=== PATIENT | female | born 1985 | race Two or more races ===

== ENCOUNTER 2017-02-17 09:24 | Observation (INO) | payer SELFPAY ==
[2017-02-17] VITALS (9 sets, daily range): BP systolic 94–108; BP diastolic 55–66
[~2017-02-17] VITALS: Ht 165.1 cm; Wt 90.3 kg
[~2017-02-17 09:24] MED LIST: HYDR-971 PO; NAPR500T8 PO
[2017-02-17 09:57] LABS: BILIRUBIN,URINE NEGATIVE (NEG); GLUCOSE,URINE NEGATIVE (NEG); NITRITE,URINE NEGATIVE (NEG); PROTEIN,URINE 30 mg/dL (NEG-TRACE); UROBILINOGEN,URINE 0.2 mg/dL (0.2 mg/dL)
--- NOTE | 2017-02-17 09:59 | PHYS DOC ---
Past Medical History Past Medical History: No Pertinent History Past Surgical History: No Surgical History Alcohol Use: None Drug Use: None Adult General Chief Complaint Chief Complaint: VAGINAL BLEEDING HPI HPI 32-year-old female presenting to the emergency department today with right flank pain and vaginal bleeding. She is approximately 10 weeks by last menstrual period which was in the middle of November. She has sharp pain that radiates into the groin associated with polyuria without dysuria. It is moderate intermittent and without alleviating factors. Review of systems is negative for chest pain shortness of breath nausea vomiting. All other review of systems is negative unless otherwise noted in history of present illness. ED course: 32-year-old G7 female presenting to the emergency department today with right flank pain and vaginal bleeding noted to have a low-grade temperature on triage vital signs. The patient was given IV fluids. Ultrasound obtained. Blood work obtained. Vaginal exam performed in the presence of a female nurse showed mild blood without any evidence of cervicitis. No cervical motion tenderness. No evidence of adnexal masses. I discussed the case with Dr. Monson. Patient has signs suggestive of a urinary tract infection. Also, septic in the differential. Also appendicitis in the differential. Abdominal exam shows a nontender appendix with flank pain. Dr. Monson decided to take the patient for a D&C in the operating room for a D&C and admitted to the hospital with IV antibiotics. Review of Systems Review of Systems SEE ABOVE. Current Medications Current Medications Current Medications Medications (Trade) Dose Ordered Sig/Farideh Start Time Stop Time Status Last Admin Dose Admin Ceftriaxone Sodium 50 ml @ 100 mls/hr 1X ONCE 02/17/17 12:00 02/17/17 12:29 DC Dexamethasone Sodium Phosphate (Decadron) 20 mg STK-MED ONCE 02/17/17 12:22 02/17/17 12:23 DC Famotidine (Pepcid) 20 mg STK-MED ONCE 02/17/17 12:22 02/17/17 12:23 DC Fentanyl Citrate (Fentanyl 2ml Vial) 100 mcg STK-MED ONCE 02/17/17 12:22 02/17/17 12:23 DC Hydromorphone HCl (Dilaudid) 0.5 mg PRN Q10MIN PRN 02/18/17 07:00 02/19/17 06:59 Lidocaine HCl (Lidocaine Pf 2% Vial) 5 ml STK-MED ONCE 02/17/17 12:22 02/17/17 12:23 DC Midazolam HCl (Versed) 2 mg STK-MED ONCE 02/17/17 12:22 02/17/17 12:23 DC Morphine Sulfate 1 mg PRN Q10MIN PRN 02/18/17 07:00 02/19/17 06:59 Ondansetron HCl (Zofran) 4 mg STK-MED ONCE 02/17/17 12:22 02/17/17 12:23 DC Oxytocin (Pitocin) 10 unit STK-MED ONCE 02/17/17 12:36 02/17/17 12:37 DC Prochlorperazine Edisylate (Compazine) 5 mg PACU PRN PRN 02/18/17 07:00 02/19/17 06:59 Propofol 20 ml @ As Directed STK-MED ONCE 02/17/17 12:22 02/17/17 12:23 DC Ringer's Solution 1,000 ml @ 30 mls/hr Q24H 02/18/17 07:00 02/18/17 18:59 Sodium Chloride 1,000 ml @ 1,000 mls/hr 1X ONCE 02/17/17 10:15 02/17/17 11:14 DC 02/17/17 10:25 1,000 MLS/HR Vasopressin (Vasostrict) 20 unit STK-MED ONCE 02/17/17 12:36 02/17/17 12:37 DC Allergies Allergies Allergies Coded Allergies Type Severity Reaction Last Updated Verified No Known Drug Allergies 07/31/15 No Physical Exam Physical Exam SEE ABOVE Constitutional: Well developed, well nourished, no acute distress, non-toxic appearance. [] HENT: Normocephalic, atraumatic, bilateral external ears normal, oropharynx moist, no oral exudates, nose normal. [] Eyes: PERRLA, EOMI, conjunctiva normal, no discharge. [] Neck: Normal range of motion, no tenderness, supple, no stridor. [] Cardiovascular:Heart rate regular rhythm, no murmur [] Lungs & Thorax: Bilateral breath sounds clear to auscultation [] Abdomen: Abdomen is soft and nontender. Negative McBurney's point. Negative Devlin sign. No rebound tenderness or guarding present. Skin: Warm, dry, no erythema, no rash. [] Back: No midline tenderness, positive for right CVA tenderness. Negative for left CVA tenderness Extremities: No tenderness, no cyanosis, no clubbing, ROM intact, no edema. [] Neurologic: Alert and oriented X 3, normal motor function, normal sensory function, no focal deficits noted. [] Psychologic: Affect normal, judgement normal, mood normal. [] Current Patient Data Vital Signs Vital Signs Date Time Temp Pulse Resp B/P (MAP) Pulse Ox O2 Delivery O2 Flow Rate FiO2 02/17/17 10:24 18 02/17/17 09:40 100.1 100 129/74 (92) 100 Room Air 100.1 Lab Values Laboratory Tests Test 02/17/17 08:43 02/17/17 09:33 02/17/17 09:40 POC Urine HCG, Qualitative Hcg positive (Negative) Urine Collection Type Void Urine Color Yellow Urine Clarity Cloudy Urine pH 7.0 Urine Specific [place] 1.010 Urine Protein 30 mg/dL (NEG-TRACE) Urine Glucose (UA) Negative mg/dL (NEG) Urine Ketones (Stick) Negative mg/dL (NEG) Urine Blood Large (NEG) Urine Nitrite Negative (NEG) Urine Bilirubin Negative (NEG) Urine Urobilinogen Dipstick 0.2 mg/dL (0.2 mg/dL) Urine Leukocyte Esterase Large (NEG) Urine RBC Tntc /HPF (0-2) Urine WBC Tntc /HPF (0-4) Urine Squamous Epithelial Cells Few /LPF Urine Bacteria Many /HPF (0-FEW) White Blood Count 14.4 x10^3/uL (4.0-11.0) H Red Blood Count 4.18 x10^6/uL (3.50-5.40) Hemoglobin 11.5 g/dL (12.0-15.5) L Hematocrit 34.0 % (36.0-47.0) L Mean Corpuscular Volume 81 fL (79-100) Mean Corpuscular Hemoglobin 28 pg (25-35) Mean Corpuscular Hemoglobin Concent 34 g/dL (31-37) Red Cell Distribution Width 16.3 % (11.5-14.5) H Platelet Count 257 x10^3/uL (140-400) Neutrophils (%) (Auto) 85 % (31-73) H Lymphocytes (%) (Auto) 8 % (24-48) L Monocytes (%) (Auto) 6 % (0-9) Eosinophils (%) (Auto) 1 % (0-3) Basophils (%) (Auto) 0 % (0-3) Neutrophils # (Auto) 12.3 x10^3uL (1.8-7.7) H Lymphocytes # (Auto) 1.1 x10^3/uL (1.0-4.8) Monocytes # (Auto) 0.8 x10^3/uL (0.0-1.1) Eosinophils # (Auto) 0.2 x10^3/uL (0.0-0.7) Basophils # (Auto) 0.0 x10^3/uL (0.0-0.2) Segmented Neutrophils % 78 % (35-66) H Band Neutrophils % 12 % (0-9) H Lymphocytes % 5 % (24-48) L Atypical Lymphocytes % (Manual) 1 % (0-0) H Monocytes % 3 % (0-10) Eosinophils % 1 % (0-5) Platelet Estimate Adequate (ADEQUATE) Maternal Serum HCG Beta Subunit 8183 mIU/mL (0-5) H Sodium Level 140 mmol/L (136-145) Potassium Level 3.4 mmol/L (3.5-5.1) L Chloride Level 104 mmol/L (98-107) Carbon Dioxide Level 28 mmol/L (21-32) Anion Gap 8 (6-14) Blood Urea Nitrogen 8 mg/dL (7-20) Creatinine 0.5 mg/dL (0.6-1.0) L Estimated GFR (Cockcroft-Gault) 142.1 BUN/Creatinine Ratio 16 (6-20) Glucose Level 90 mg/dL (70-99) Calcium Level 8.1 mg/dL (8.5-10.1) L Total Bilirubin 0.4 mg/dL (0.2-1.0) Aspartate Amino Transferase (AST) 9 U/L (15-37) L Alanine Aminotransferase (ALT) 15 U/L (14-59) Alkaline Phosphatase 79 U/L (46-116) Total Protein 7.8 g/dL (6.4-8.2) Albumin 3.4 g/dL (3.4-5.0) Albumin/Globulin Ratio 0.8 (1.0-1.7) L Lipase 94 U/L (73-393) Laboratory Tests 02/17/17 09:40 Laboratory Tests 02/17/17 09:40 EKG EKG [] Radiology/Procedures Radiology/Procedures [] Course & Med Decision Making Course & Med Decision Making Pertinent Labs and Imaging studies reviewed. (See chart for details) [] Dragon Disclaimer Dragon Disclaimer This electronic medical record was generated, in whole or in part, using a voice recognition dictation system. Departure Departure Impression: Primary Impression: Right flank pain Additional Impressions: Vaginal bleeding in Sepsis due to incomplete miscarriage Disposition: ADMITTED INPATIENT Admitting Physician: Other (stephane) Condition: IMPROVED Referrals: TRACY KUMAR (PCP) ALANNA QUINTERO Jr, MD Patient Instructions: Flank Pain, Vaginal Bleeding During , First Trimester Problem Qualifiers SHIV MAGANA MD Feb 17, 2017 09:59
[2017-02-17] MEDS ORDERED: fentaNYL PF VIAL 100 MCG/2 ML VIAL IV PRN ×2 (10:00→14:00)
[2017-02-17 10:04] LABS: BASO % 0 % (0-3); EOS % 1 % (0-3); HEMOGLOBIN 11.5 g/dL (12.0-15.5); LYMPH # 1.1 x10^3/uL (1.0-4.8); LYMPH % 8 % (24-48); MEAN CORPUSCULAR HEMOGLOBIN 28 pg (25-35); MEAN CORPUSCULAR HGB CONC 34 g/dL (31-37); MEAN CORPUSCULAR VOLUME 81 fL (79-100); MONO % 6 % (0-9); NEUT % 85 % (31-73); PLATELET COUNT 257 x10^3/uL (140-400); RED BLOOD COUNT 4.18 x10^6/uL (3.50-5.40); RED CELL DISTRIBUTION WIDTH 16.3 % (11.5-14.5); WHITE BLOOD COUNT 14.4 x10^3/uL (4.0-11.0)
[2017-02-17 10:06] LABS: BACTERIA,URINE MANY /HPF (0-FEW); RBC,URINE TNTC /HPF (0-2); SQUAMOUS EPITHELIAL CELL,UR FEW /LPF; WBC,URINE TNTC /HPF (0-4)
[2017-02-17 10:13] LABS: CALCIUM 8.1 mg/dL (8.5-10.1); CREATININE 0.5 mg/dL (0.6-1.0); GFR 142.1; POTASSIUM 3.4 mmol/L (3.5-5.1)
[2017-02-17] MEDS ORDERED: ONDANSETRON PF 4 MG/2 ML VIAL. IV ONE (10:15)
[2017-02-17] MEDS ORDERED: IV NORMAL SALINE 1000ML BAG 1,000 ML IV ONE (10:15)
[2017-02-17 10:19] LABS: ALBUMIN 3.4 g/dL (3.4-5.0); ALBUMIN/GLOBULIN RATIO 0.8 (1.0-1.7); TOTAL BILIRUBIN 0.4 mg/dL (0.2-1.0); TOTAL PROTEIN 7.8 g/dL (6.4-8.2)
--- NOTE | 2017-02-17 10:43 | RAD ---
Obstetrical ultrasound, 02/17/2017: History: , vaginal bleeding Transabdominal and transvaginal scans were obtained. The uterus is enlarged and retroflexed. There is considerable thickening of the central uterine echo complex. There is a small fluid collection within the central uterine echo complex compatible with a gestational sac. Its margins are irregular and less echogenic than normal. The sac measures approximately 2.5 x 1 cm. There is faint echogenic debris within this fluid collection. A questionable tiny pole is seen demonstrating a crown-rump length of 2 mm. No heart motion is evident. The ovaries are of normal size. No adnexal mass is seen. No free fluid is evident in the pelvis. IMPRESSION: 1. Abnormal appearing early gestational sac within the central uterine cavity suggesting a nonviable . Correlation with hCG titers and possibly sonographic follow-up is suggested for confirmation. 2. No adnexal abnormality is detected.
[2017-02-17 10:53] LABS: % EOS 1 % (0-5)
[2017-02-17 10:54] LABS: PLT ESTIMATE ADEQUATE (ADEQUATE)
[2017-02-17] MEDS ORDERED: PROPOFOL 20 ML IV ONE (12:22)
[2017-02-17] MEDS ORDERED: fentaNYL PF VIAL 100 MCG/2 ML VIAL ONE (12:22)
[2017-02-17] MEDS ORDERED: ONDANSETRON PF 4 MG/2 ML VIAL. ONE (12:22)
[2017-02-17] MEDS ORDERED: MIDAZOLAM HCL/PF 2 MG/2 ML VIAL. ONE (12:22)
[2017-02-17] MEDS ORDERED: FAMOTIDINE 20 MG/2 ML VIAL ONE (12:22)
[2017-02-17] MEDS ORDERED: LIDOCAINE 2% PF Vial for OR 5 ML VIAL. ONE (12:22)
[2017-02-17] MEDS ORDERED: DEXAMETHASONE SOD PHOS 20 MG/5 ML VIAL. ONE (12:22)
[2017-02-17] MEDS ORDERED: VASOPRESSIN 20 UNIT/ML VIAL. ONE (12:36)
[2017-02-17] MEDS ORDERED: OXYTOCIN 10 UNIT/ML VIAL. ONE (12:36)
[2017-02-17] MEDS ORDERED: SEVOFLURANE 16 TO 30 MINUTES. IH ONE (13:29)
--- NOTE | 2017-02-17 13:29 | PDOC ---
BRIEF OPERATIVE NOTE Pre-Op Diagnosis Septic Post-Op Diagnosis Same Procedure Performed Suction D&C Surgeon Dr. Dennis Anesthesia Type: General Blood Loss 100 ml Specimens Obtained POC Findings POC Complications none ALANNA DENNIS Jr, MD Feb 17, 2017 13:29
[2017-02-17] MEDS ORDERED: KETOROLAC TROMETHAMINE 30 MG/ML INJ. IV PRN (13:30)
[2017-02-17] MEDS ORDERED: diphenhydrAMINE HCL 25 MG CAPSULE PO PRN (13:30)
[2017-02-17] MEDS ORDERED: SIMETHICONE 80 MG TAB.CHEW PO PRN (13:30)
[2017-02-17] MEDS ORDERED: ONDANSETRON PF 4 MG/2 ML VIAL. IV PRN ×2 (13:30→14:00)
[2017-02-17] MEDS ORDERED: ZOLPIDEM 5 MG TABLET. PO PRN (13:30)
[2017-02-17] MEDS ORDERED: DEXTROSE 50% 25 GM / 50ML DISP.SYRIN. IV PRN (13:30)
[2017-02-17] MEDS ORDERED: diphenhydrAMINE 50 MG/ML VIAL IV PRN (13:30)
[2017-02-17] MEDS ORDERED: PROCHLORPERAZINE 10 MG/2 ML VIAL. IV PRN ×2 (13:30→14:00)
[2017-02-17] MEDS ORDERED: 0.9 % SODIUM CHLORIDE 10 ML DISP.SYRIN. IV PRN (13:30)
[2017-02-17] MEDS ORDERED: CALCIUM CARBONATE 500 MG TAB.CHEW PO PRN (13:30)
[2017-02-17] MEDS ORDERED: KETOROLAC TROMETHAMINE 30 MG/ML INJ. ONE (13:39)
[2017-02-17] MEDS ORDERED: IV RINGERS,LACTATED 1000ML 1,000 ML IV SCH (13:46)
[2017-02-17] MEDS: fentaNYL PF VIAL 100 MCG/2 ML VIAL IV PRN ×2 (13:51→14:15)
[2017-02-17] MEDS ORDERED: MORPHINE SULFATE 2 MG/ML DISP.SYRIN. IV PRN (14:00)
[2017-02-17] MEDS: GABAPENTIN 300 MG CAPSULE. PO SCH ×2 (14:00→22:00)
[2017-02-17] MEDS ORDERED: LIDOCAINE 1% 1 ML SYRINGE. ID PRN (14:00)
[2017-02-17] MEDS ORDERED: HYDROmorphone 2 MG/ML VIAL IV PRN (14:00)
[2017-02-17] MEDS: oxyCODONE/APAP 5/325 1 TAB TABLET PO PRN ×3 (15:06→23:49)
[2017-02-17] MEDS ORDERED: IBUPROFEN 800 MG TABLET. PO PRN (16:30)
[2017-02-17] MEDS ORDERED: ACETAMINOPHEN 500 MG TABLET PO PRN (16:30)
[2017-02-17] MEDS: PIPERACILLIN/TAZOBACTAM 3.375 GM in IV NORMAL SALINE 50ML 50 ML IV SCH ×2 (17:32→23:49)
[2017-02-17] MEDS: IV RINGERS,LACTATED 1000ML 1,000 ML IV SCH (17:32)
--- NOTE | 2017-02-17 19:19 | OP ---
DATE OF SURGERY: PREOPERATIVE DIAGNOSIS: Septic . POSTOPERATIVE DIAGNOSIS: Septic . PROCEDURE: Suction D and C. SURGEON: Merlin Dennis M.D. ANESTHESIA: GETA. ESTIMATED BLOOD LOSS: 100 mL. COMPLICATIONS: None. FINDINGS: Products of conception. SUMMARY: A 32-year-old 7, para 6 and 8 weeks' gestation, who presented for vaginal bleeding, abdominal pain, fever, chills, night sweats at home. The patient was found to have incomplete with fever. She was then diagnosed with septic . The patient was counseled on the need for IV antibiotics as well as suction D and C for evacuation of products of conception. She was counseled on the risks, benefits and expectations and voiced clear understanding to proceed. DESCRIPTION OF PROCEDURE: The patient was taken to the surgery suite and placed in the dorsal lithotomy position where she was prepped with Betadine solution and draped in sterile fashion. After adequate anesthesia, weighted speculum and curved [place] were placed vaginally. The anterior lip of the cervix was grasped with a single-tooth tenaculum. Tejeda dilators up to size 18 were used to dilate the cervix. Sharp curettage took place, removing products of conception as well as malodorous products of conception and blood products. Suction curettage then took place. Dissection of 60 cm of mercury rotated circumferentially, removing further products of conception. Sharp curettage took place once again until a fine gritty surface was palpated circumferentially. Suction curettage was utilized to remove any remaining products of conception. The single-tooth tenaculum was then removed and was hemostatic. Weighted speculum was removed. The patient tolerated the procedure well and was taken to the recovery room in stable condition. Sponge and needle counts were correct x 3. MERLIN DENNIS MD DR: HANH/dinah JOB#: [id number] / [id number]
[2017-02-18 00:45] VITALS: BP 107/68
[2017-02-18 04:25] LABS: BASO % 0 % (0-3); EOS % 0 % (0-3); HEMATOCRIT 31.5 % (36.0-47.0); HEMOGLOBIN 10.1 g/dL (12.0-15.5); LYMPH # 1.1 x10^3/uL (1.0-4.8); LYMPH % 6 % (24-48); MEAN CORPUSCULAR HEMOGLOBIN 27 pg (25-35); MEAN CORPUSCULAR HGB CONC 32 g/dL (31-37); MEAN CORPUSCULAR VOLUME 83 fL (79-100); MONO % 6 % (0-9); NEUT % 87 % (31-73); PLATELET COUNT 239 x10^3/uL (140-400); RED BLOOD COUNT 3.78 x10^6/uL (3.50-5.40); RED CELL DISTRIBUTION WIDTH 16.4 % (11.5-14.5); WHITE BLOOD COUNT 17.5 x10^3/uL (4.0-11.0)
[2017-02-18 05:16] VITALS: BP 97/56
[2017-02-18] MEDS: IV RINGERS,LACTATED 1000ML 1,000 ML IV SCH (05:41)
[2017-02-18] MEDS: PIPERACILLIN/TAZOBACTAM 3.375 GM in IV NORMAL SALINE 50ML 50 ML IV SCH ×2 (05:41→12:23)
[2017-02-18] MEDS: GABAPENTIN 300 MG CAPSULE. PO SCH (05:41)
[2017-02-18] MEDS ORDERED: LIDOCAINE 1% 1 ML SYRINGE. ID PRN (07:00)
[2017-02-18] MEDS ORDERED: IV RINGERS,LACTATED 1000ML 1,000 ML IV SCH (07:00)
[2017-02-18] MEDS ORDERED: ONDANSETRON PF 4 MG/2 ML VIAL. IV PRN (07:00)
[2017-02-18] MEDS ORDERED: fentaNYL PF VIAL 100 MCG/2 ML VIAL IV PRN ×2 (07:00)
[2017-02-18] MEDS ORDERED: PROCHLORPERAZINE 10 MG/2 ML VIAL. IV PRN (07:00)
[2017-02-18] MEDS ORDERED: HYDROmorphone 2 MG/ML VIAL IV PRN (07:00)
[2017-02-18] MEDS ORDERED: MORPHINE SULFATE 2 MG/ML DISP.SYRIN. IV PRN (07:00)
[2017-02-18] MEDS: oxyCODONE/APAP 5/325 1 TAB TABLET PO PRN (08:04)
[2017-02-18 12:05] VITALS: BP 93/53
--- NOTE | 2017-02-18 13:04 | PDOC ---
SURGICAL PROGRESS NOTE Subjective Pt. feeling better. No fever overnight. Pt. desires to go home. Vital Signs Vital Signs Date Time Temp Pulse Resp B/P (MAP) Pulse Ox O2 Delivery O2 Flow Rate FiO2 02/18/17 09:12 Room Air 02/18/17 05:16 98.1 71 20 97/56 (70) 95 98.1 I&O Intake and Output 02/18/17 07:00 Intake Total 2240 ml Output Total 1000 ml Balance 1240 ml Intake Oral 1240 ml IV Total 1000 ml Output Urine Total 1000 ml Stool Total 0 ml # Voids 2 PATIENT HAS A LOPEZ: No General: Alert, Oriented X3, Cooperative HEENT: Atraumatic Lungs: Clear to auscultation Heart: Regular rate Abdomen: Normal bowel sounds, Soft, No masses, Other (mild Right CVA tenderness : improved.) Extremities: No edema Skin: No rashes Neuro: Normal gait Psych/Mental Status: Mental status NL Labs Laboratory Tests Test 02/17/17 08:43 02/17/17 09:33 02/17/17 09:40 02/18/17 03:23 Bedside Urine HCG, Qualitative Hcg positive (Negative) Urine Collection Type Void Urine Color Yellow Urine Clarity Cloudy Urine pH 7.0 Urine Specific [place] 1.010 Urine Protein 30 mg/dL (NEG-TRACE) Urine Glucose (UA) Negative mg/dL (NEG) Urine Ketones (Stick) Negative mg/dL (NEG) Urine Blood Large (NEG) Urine Nitrite Negative (NEG) Urine Bilirubin Negative (NEG) Urine Urobilinogen Dipstick 0.2 mg/dL (0.2 mg/dL) Urine Leukocyte Esterase Large (NEG) Urine RBC Tntc /HPF (0-2) Urine WBC Tntc /HPF (0-4) Urine Squamous Epithelial Cells Few /LPF Urine Bacteria Many /HPF (0-FEW) White Blood Count 14.4 x10^3/uL (4.0-11.0) 17.5 x10^3/uL (4.0-11.0) Red Blood Count 4.18 x10^6/uL (3.50-5.40) 3.78 x10^6/uL (3.50-5.40) Hemoglobin 11.5 g/dL (12.0-15.5) 10.1 g/dL (12.0-15.5) Hematocrit 34.0 % (36.0-47.0) 31.5 % (36.0-47.0) Mean Corpuscular Volume 81 fL (79-100) 83 fL (79-100) Mean Corpuscular Hemoglobin 28 pg (25-35) 27 pg (25-35) Mean Corpuscular Hemoglobin Concent 34 g/dL (31-37) 32 g/dL (31-37) Red Cell Distribution Width 16.3 % (11.5-14.5) 16.4 % (11.5-14.5) Platelet Count 257 x10^3/uL (140-400) 239 x10^3/uL (140-400) Neutrophils (%) (Auto) 85 % (31-73) 87 % (31-73) Lymphocytes (%) (Auto) 8 % (24-48) 6 % (24-48) Monocytes (%) (Auto) 6 % (0-9) 6 % (0-9) Eosinophils (%) (Auto) 1 % (0-3) 0 % (0-3) Basophils (%) (Auto) 0 % (0-3) 0 % (0-3) Neutrophils # (Auto) 12.3 x10^3uL (1.8-7.7) 15.3 x10^3uL (1.8-7.7) Lymphocytes # (Auto) 1.1 x10^3/uL (1.0-4.8) 1.1 x10^3/uL (1.0-4.8) Monocytes # (Auto) 0.8 x10^3/uL (0.0-1.1) 1.1 x10^3/uL (0.0-1.1) Eosinophils # (Auto) 0.2 x10^3/uL (0.0-0.7) 0.0 x10^3/uL (0.0-0.7) Basophils # (Auto) 0.0 x10^3/uL (0.0-0.2) 0.0 x10^3/uL (0.0-0.2) Segmented Neutrophils % 78 % (35-66) Band Neutrophils % 12 % (0-9) Lymphocytes % 5 % (24-48) Atypical Lymphocytes % (Manual) 1 % (0-0) Monocytes % 3 % (0-10) Eosinophils % 1 % (0-5) Platelet Estimate Adequate (ADEQUATE) Maternal Serum HCG Beta Subunit 8183 mIU/mL (0-5) Sodium Level 140 mmol/L (136-145) Potassium Level 3.4 mmol/L (3.5-5.1) Chloride Level 104 mmol/L (98-107) Carbon Dioxide Level 28 mmol/L (21-32) Anion Gap 8 (6-14) Blood Urea Nitrogen 8 mg/dL (7-20) Creatinine 0.5 mg/dL (0.6-1.0) Estimated GFR (Cockcroft-Gault) 142.1 BUN/Creatinine Ratio 16 (6-20) Glucose Level 90 mg/dL (70-99) Calcium Level 8.1 mg/dL (8.5-10.1) Total Bilirubin 0.4 mg/dL (0.2-1.0) Aspartate Amino Transf (AST/SGOT) 9 U/L (15-37) Alanine Aminotransferase (ALT/SGPT) 15 U/L (14-59) Alkaline Phosphatase 79 U/L (46-116) Total Protein 7.8 g/dL (6.4-8.2) Albumin 3.4 g/dL (3.4-5.0) Albumin/Globulin Ratio 0.8 (1.0-1.7) Lipase 94 U/L (73-393) Laboratory Tests Test 02/18/17 03:23 White Blood Count 17.5 x10^3/uL (4.0-11.0) Red Blood Count 3.78 x10^6/uL (3.50-5.40) Hemoglobin 10.1 g/dL (12.0-15.5) Hematocrit 31.5 % (36.0-47.0) Mean Corpuscular Volume 83 fL (79-100) Mean Corpuscular Hemoglobin 27 pg (25-35) Mean Corpuscular Hemoglobin Concent 32 g/dL (31-37) Red Cell Distribution Width 16.4 % (11.5-14.5) Platelet Count 239 x10^3/uL (140-400) Neutrophils (%) (Auto) 87 % (31-73) Lymphocytes (%) (Auto) 6 % (24-48) Monocytes (%) (Auto) 6 % (0-9) Eosinophils (%) (Auto) 0 % (0-3) Basophils (%) (Auto) 0 % (0-3) Neutrophils # (Auto) 15.3 x10^3uL (1.8-7.7) Lymphocytes # (Auto) 1.1 x10^3/uL (1.0-4.8) Monocytes # (Auto) 1.1 x10^3/uL (0.0-1.1) Eosinophils # (Auto) 0.0 x10^3/uL (0.0-0.7) Basophils # (Auto) 0.0 x10^3/uL (0.0-0.2) Problem List Problems Medical Problems: (1) Right flank pain Status: Acute (2) Sepsis due to incomplete miscarriage Status: Acute (3) Vaginal bleeding in Status: Acute Assessment/Plan s/p Septic P: D/c home. F/u in 1 week. Problems: ALANNA QUINTERO Jr, MD Feb 18, 2017 13:04
--- NOTE | 2017-02-18 13:06 | DISCH ---
DISCHARGE INSTRUCTIONS Condition on Discharge Condition on Discharge: Stable Activity After Discharge Activity Instructions for Disc: Resume previous activity Lifting Instructions after Dis: No heavy lifting Driving Instructions after Dis: Do not drive today Diet after Discharge Diet after Discharge: Regular Contacting the DRMorena after DC Call your doctor for: Concerns you may have Follow-Up Follow up with: Dr. Dennis in 1 week. ALANNA DENNIS Jr, MD Feb 18, 2017 13:05
[2017-02-18] MEDS ORDERED: DOXY100C2 PO (13:07)
--- NOTE | 2017-02-18 17:00 | PATHOLOGY ---
PATHOLOGY REPORT * * * * * * * * FINAL DIAGNOSIS: Uterine contents, suction D and C: - Products of conception, comprised of immature chorionic villi showing focal mild hydropic degenerative changes, decidual tissue showing focal acute inflammation, and hypersecretory endometrium. (JPM:mgr; 02/18/2017) REPORT ELECTRONICALLY SIGNED BY: Cooper Wynn M.D. DATE/TIME: 02/18/2017 16:59 * * * * * * * * GROSS PATHOLOGY: The specimen is received in formalin, partially within a white cloth collection device along with two segments of [place], designated "Amy Willingham, products of conception" and consists of multiple fragments of pink caban spongy tissue, levine caban decidua and dark reddish purple blood clot having an aggregate weight of 39.4 g and measuring 7.7 x 6.5 x 1.3 cm. The specimen is closely inspected and no or embryonic parts are identified grossly. Multiple installation service representative sections are submitted in cassettes A1 through A3. (JPM; 02/17/17) INITIAL CPT CODE(S): A; 69692 Professional services performed [place] [place] [address] Technical services performed by [facility] at [address] [place] [address], [facility] [address], [place] [address]. SPECIMEN(S) RECEIVED: A.Products of conception CLINICAL HISTORY: Spontaneous , sepsis due to incomplete PATIENT: AMY SHIPLEY /AGE: 601/14/1985 (Age: 32) PATIENT #: [id number] ALT CASE #: SPECIMEN COLLECTION DATE: 02/17/2017 SPECIMEN RECEIVED DATE: 02/17/2017 [facility] - [address] [place] [address] - PHONE: [phone] * * * END OF REPORT * * *
[2017-02-18 17:10] VITALS: BP 99/67
== END 2017-02-18 18:20 | disposition home or self-care (01) ==
LOC: ER 09:24 → 3 NORTH 12:31
PROVIDERS: ADMIT Obstetrics & Gynecology; ATTEND Obstetrics & Gynecology
DX: O03.37 Sepsis following incomplete spontaneous abortion (principal); A41.9 Sepsis, unspecified organism; Z3A.10 10 weeks gestation of pregnancy
CPT/HCPCS: 36415; 59812; 76801; 76817; 80053; 81001; 81025; 83690; 84702; 85007; 85027; 87040; 87086; 87491; 87591; 88305; 96365; 96375; 96376; 99285; G0378; J0690; J1100; J1885; J2001; J2250; J2405; J2543; J2704; J3010; J7030; Q0111; Q0163; S0028; G0379; J2590; J3490; J7120

== ENCOUNTER 2021-03-19 18:29 | Emergency (ER) | payer SELFPAY ==
[~2021-03-19] VITALS: Ht 160 cm; Wt 70.0 kg
[~2021-03-19 18:29] MED LIST changes: +DOXY100C3 PO; +HYDR-3164 PO; -HYDR-971 PO
--- NOTE | 2021-03-19 19:54 | PHYS DOC ---
Past Medical History Past Medical History: No Pertinent History Past Surgical History: No Surgical History Smoking Status: Former Smoker Alcohol Use: None Drug Use: None General Adult EDM: Chief Complaint: FLANK PAIN HPI: HPI: Patient is a 36 year old female with history of recurrent UTI who presents with right-sided flank pain and right-sided abdominal pain since Thursday. States that she has had subjective fevers/chills. Denies dysuria. Does report a sensation of relief when she empties her bladder. She has had nausea but no vomiting. No constipation or diarrhea. She has been on Bactrim since yesterday morning, and has not had any relief in her symptoms. Finished her period approximately 2 days ago. No vaginal symptoms. Review of Systems: Review of Systems: Constitutional: Reports subjective fever and chills [] Eyes: Denies change in visual acuity. [] HENT: Denies nasal congestion or sore throat. [] Respiratory: Denies cough or shortness of breath. [] Cardiovascular: Denies chest pain or edema. [] GI: Reports right-sided abdominal pain, and nausea. Denies vomiting, bloody stools or diarrhea. [] : Reports right-sided flank pain. [] Musculoskeletal: Denies back pain or joint pain. [] Integument: Denies rash. [] Neurologic: Denies headache, focal weakness or sensory changes. [] Endocrine: Denies polyuria or polydipsia. [] Lymphatic: Denies swollen glands. [] Psychiatric: Denies depression or anxiety. [] Heart Score: C/O Chest Pain: No Risk Factors: Risk Factors: DM, Current or recent (<one month) smoker, HTN, HLP, family history of CAD, obesity. Risk Scores: Score 0 - 3: 2.5% MACE over next 6 weeks - Discharge Home Score 4 - 6: 20.3% MACE over next 6 weeks - Admit for Clinical Observation Score 7 - 10: 72.7% MACE over next 6 weeks - Early Invasive Strategies Allergies: Allergies: Allergies Coded Allergies Type Severity Reaction Last Updated Verified No Known Drug Allergies 02/17/17 No Physical Exam: PE: Constitutional: Well developed, well nourished, no acute distress, non-toxic appearance. [] HENT: Normocephalic, atraumatic, bilateral external ears normal, oropharynx moist, no oral exudates, nose normal. [] Eyes: PERRLA, EOMI, conjunctiva normal, no discharge. [] Neck: Normal range of motion, no tenderness, supple, no stridor. [] Cardiovascular:Heart rate regular rhythm, no murmur [] Lungs & Thorax: Bilateral breath sounds clear to auscultation [] Abdomen: Soft, nondistended, right-sided mild tenderness to palpation in the RUQ and RLQ. [] Skin: Warm, dry, no erythema, no rash. [] Back: No tenderness, no CVA tenderness. [] Extremities: No tenderness, no cyanosis, no clubbing, ROM intact, no edema. [] Neurologic: Alert and oriented X 3, normal motor function, normal sensory function, no focal deficits noted. [] Psychologic: Affect normal, judgement normal, mood normal. [] Current Patient Data: Vital Signs: Vital Signs Date Time Temp Pulse Resp B/P (MAP) Pulse Ox O2 Delivery O2 Flow Rate FiO2 03/19/21 19:07 98.5 83 18 128/78 100 98.5 EKG: EKG: [] Radiology/Procedures: Radiology/Procedures: [] Impression: [facility] [address] [place] [address] IMAGING REPORT Signed PATIENT: AMY SHIPLEY EACCOUNT: [id number] : 1985 LOCATION: ER AGE: 36 SEX: F EXAM STATUS: REG ER ORD. PHYSICIAN: NORMA ACEVES MD REASON: right flank pain, evidence of UTI, eval for stone/abscess PROCEDURE: CT ABD PELV W/ IV CONTRST ONLY Exam: CT of abdomen and pelvis with contrast INDICATION: Right flank pain TECHNIQUE: Sequential axial images through the abdomen and pelvis obtained without IV contrast. Sagittal and coronal reformatted images were reconstructed from the axial data and reviewed. Exposure: One or more of the following in the visualized dose reduction techniques were utilized for this examination: 1. Automated exposure control 2. Adjustment of the MA and/or KV according to patient size 3. Use of iterative of reconstructive technique Comparisons: None FINDINGS: Heart size is normal. No pericardial effusion. Visualized lung bases are clear. No pleural effusion. Liver, spleen, pancreas, gallbladder and adrenals are unremarkable. Delayed enhancement of the right kidney. There is moderate right-sided hydronephrosis. Right ureteral wall enhancement is noted. No renal calculi are identified. No ureteral calculi are seen. Bladder is partially distended and not well evaluated. Uterus is not enlarged. No abnormal adnexal mass. Large and small bowel are unremarkable. Appendix is is not identified. No free intra-abdominal air or fluid. No obstruction. Abdominal aorta has normal course and caliber. Abdominal vasculature is patent. No enlarged abdominal lymph nodes are identified. No suspicious osseous lesions or acute fractures. IMPRESSION: Moderate right-sided hydronephrosis and ureteral wall enhancement. An obstructing stone or lesion is not identified. There is associated ureteral wall enhancement concerning for infection. Electronically signed by: Zamzam Troncoso MD (03/19/2021 9:39 PM) [facility] DICTATED and SIGNED BY: ZAMZAM TRONCOSO MD DATE: 03/19/21 [id number] 0 Course & Med Decision Making: Course & Med Decision Making Pertinent Labs and Imaging studies reviewed. (See chart for details) Patient is 36-year-old female with history of recurrent UTIs who presents with right-sided flank and abdominal pain, fever/chills, and relief with urination over the past 3 days. DDx includes kidney stone, urinary tract infection/pyelonephritis, less likely appendicitis. No pelvic discomfort or vaginal symptoms to suggest torsion, TOA, PID. We will obtain CBC, CMP, UA, urine test for initial evaluation, and reevaluate to determine need for imaging. 1953 UA suggestive of infection. Mild leukocytosis. micocytic anemia slightly worse than baseline. She appears more uncomfortable than I would expect for pyelonephritis, will obtain CT to ensure no evidence of infected kidney stone, renal abscess or other complication. 2117 CT with hydronephrosis but no stone. Consistent with pyelonephritis. We will give 1st dose of ciprofloxacin here and send with a prescription. Short prescription of hydrocodone and Zofran sent for outpatient management. Return precautions discussed. Patient states that she has a PCP that she will follow up with this week or early next week. 3 Tonia Disclaimer: Tonia Disclaimer: This electronic medical record was generated, in whole or in part, using a voice recognition dictation system. Departure Departure Impression: Primary Impression: Pyelonephritis Additional Impression: Microcytic anemia Disposition: HOME / SELF CARE / HOMELESS Condition: STABLE Referrals: UNKNOWN PCP NAME (PCP) Schedule follow-up appointment with your primary care doctor, Dr. Murillo. Patient Instructions: Pyelonephritis, Adult Additional Instructions: You have an infection of your kidney. You need to take the antibiotic, ciprofloxacin, as prescribed for 10 days. For pain tylenol and ibuprofen are best used on a schedule. Please alternate between the two. -Tylenol 500 mg every 6 hours (do not exceed 4000 mg in one day) -Ibuprofen 400 mg every 6 hours. Take with food. Do not take for more than 1 week. For pain not relieved by above you can take hydrocodone, 1 tab every 4 hours as needed. For nausea you can take Zofran, 1 tab every 4 hours as needed. Please follow-up with your primary care doctor later this week or early next week. If you develop worsening pain or your symptoms are not improving in the next 3 days please return to the emergency department for reevaluation. Your blood counts were also low. You will need to get this checked out by your primary care doctor as well. Scripts Hydrocodone Bit/Acetaminophen (HYDROCODONE-APAP 5-325 ) 1 Tab Tablet 1 TAB PO PRN Q4HRS PRN for PAIN for 3 Days, #15 TAB 0 Refills Prov: NORMA ACEVES MD 03/19/21 Ondansetron Hcl (ZOFRAN) 4 Mg Tablet 1 TAB PO PRN Q6-8HRS for nausea, #20 TAB Prov: NORMA ACEVES MD 03/19/21 Ciprofloxacin Hcl (CIPRO) 250 Mg Tablet 1 TAB PO BID for infection for 10 Days, #20 TAB Prov: NORMA ACEVES MD 03/19/21 NORMA ACEVES MD Mar 19, 2021 19:54
[2021-03-19 19:57] LABS: BILIRUBIN,URINE NEGATIVE (NEG); CLARITY,URINE CLOUDY; COLOR,URINE YELLOW; NITRITE,URINE NEGATIVE (NEG); PH,URINE 6.5 (<5.0-8.0); PROTEIN,URINE 30 mg/dL (NEG-TRACE)
[2021-03-19] MEDS ORDERED: ONDANSETRON PF 4 MG/2 ML VIAL. IVP ONE (20:00)
[2021-03-19] MEDS ORDERED: KETOROLAC 15 MG/ML VIAL. IVP ONE (20:00)
[2021-03-19 20:05] LABS: AMORPHOUS SEDIMENT,UR PRESENT /HPF; BACTERIA,URINE MODERATE /HPF (0-FEW); WBC,URINE TNTC /HPF (0-4)
[2021-03-19 20:31] LABS: BASO % 0 % (0-3); EOS # 0.3 x10^3/uL (0.0-0.7); EOS % 3 % (0-3); HEMOGLOBIN 8.4 g/dL (12.0-15.5); LYMPH # 0.8 x10^3/uL (1.0-4.8); LYMPH % 7 % (24-48); MEAN CORPUSCULAR HEMOGLOBIN 24 pg (25-35); MEAN CORPUSCULAR HGB CONC 32 g/dL (31-37); MEAN CORPUSCULAR VOLUME 74 fL (79-100); MONO # 0.8 x10^3/uL (0.0-1.1); MONO % 7 % (0-9); NEUT # 9.7 x10^3/uL (1.8-7.7); NEUT % 84 % (31-73); PLATELET COUNT 278 x10^3/uL (140-400); RED BLOOD COUNT 3.49 x10^6/uL (3.50-5.40); RED CELL DISTRIBUTION WIDTH 16.7 % (11.5-14.5); WHITE BLOOD COUNT 11.6 x10^3/uL (4.0-11.0)
[2021-03-19 20:44] LABS: CALCIUM 7.9 mg/dL (8.5-10.1); GFR 62.4; POTASSIUM 3.1 mmol/L (3.5-5.1)
[2021-03-19 20:53] LABS: ALBUMIN 2.9 g/dL (3.4-5.0); ALBUMIN/GLOBULIN RATIO 0.8 (1.0-1.7); TOTAL BILIRUBIN 0.2 mg/dL (0.2-1.0); TOTAL PROTEIN 6.6 g/dL (6.4-8.2)
[2021-03-19 21:17] LABS: U PREG PATIENT NEGATIVE (NEG)
[2021-03-19] MEDS ORDERED: CONTRAST GIVEN. MC PRN (21:30)
--- NOTE | 2021-03-19 21:42 | RAD ---
Exam: CT of abdomen and pelvis with contrast INDICATION: Right flank pain TECHNIQUE: Sequential axial images through the abdomen and pelvis obtained without IV contrast. Sagit yogesh and coronal reformatted images were reconstructed from the axial data and reviewed. Exposure: One or more of the following in the visualized dose reduction techniques were utilized for this examination: 1. Automated exposure control 2. Adjustment of the MA and/or KV according to patient size 3. Use of iterative of reconstructive technique Comparisons: None FINDINGS: Heart size is normal. No pericardial effusion. Visualized lung bases are clear. No pleural effusion. Liver, spleen, pancreas, gallbladder and adrenals are unremarkable. Delayed enhancement of the right kidney. There is moderate right-sided hydronephrosis. Right ureteral wall enhancement is noted. No renal calculi are identified. No ureteral calculi are seen. Bladder is partially distended and not well evaluated. Uterus is not enlarged. No abnormal adnexal ma ss. Large and small bowel are unremarkable. Appendix is is not identified. No free intra-abdominal air or fluid. No obstruction. Abdominal aorta has normal course and caliber. Abdominal vasculature is patent. No enlarged abdominal lymph nodes are identified. No suspicious osseous lesions or acute fractures. IMPRESSION: Moderate right-sided hydronephrosis and ureteral wall enhancement. An obstructing stone or lesion is not identified. There is associated ureteral wall enhancement concerning for infection. Electronically signed by: Zamzam Gambino MD (03/19/2021 9:39 PM) [facility]
[2021-03-19] MEDS ORDERED: IOHEXOL 300 MG/ML 100ML VIAL. IV ONE (22:00)
[2021-03-19] MEDS ORDERED: CIPROFLOXACIN HCL 250 MG TABLET. PO ONE (22:30)
[2021-03-19] MEDS ORDERED: HYDROcodone/APAP 5/325MG 1 TAB TABLET PO ONE (22:30)
[2021-03-19] MEDS ORDERED: HYDR-2761 PO (22:45)
[2021-03-19] MEDS ORDERED: CIPR250T30 PO (22:45)
[2021-03-19] MEDS ORDERED: ONDA4TAB7 PO (22:45)
[2021-03-19 23:00] VITALS: BP 102/62
== END 2021-03-19 23:00 | disposition home or self-care (01) ==
LOC: ER 18:29
DX: N12 Tubulo-interstitial nephritis, not specified as acute or chronic (principal); D50.9 Iron deficiency anemia, unspecified; Z87.891 Personal history of nicotine dependence
CPT/HCPCS: 36415; 74177; 80053; 81001; 81025; 85025; 87086; 96374; 96375; 99285; J1885; J2405; Q9967; 96365